=== PATIENT | male | born 1945 | race Caucasian/White ===

== ENCOUNTER → 2016-07-31 | Outpatient (CLI) | payer OTHER, BC ==
[~2016-07-31] MED LIST: ASCA500 PO; ASPI1TAB83 PO; CHOL100027 PO; DOCU100C31 PO; LORA-388 PO; LPT10 PO; MCRK20 PO; METO25TA56 PO; XRL20 PO; [UNRECOGNIZED DRUG - OTHER] PO
[2016-07-31 12:24] LABS: ALT/SGPT 42 U/L (12-78); BLOOD UREA NITROGEN 17 mg/dl (7-18); BUN/CREATININE RATIO 13.1 (10-20); CALCIUM 9.1 mg/dl (8.5-10.1); CARBON DIOXIDE 28 mmol/L (21-32); CHLORIDE 107 mmol/L (98-107); CHOLESTEROL 141 mg/dl (0-200); GLUCOSE 116 mg/dl (70-99); POTASSIUM 4.2 mmol/L (3.5-5.1); SODIUM 141 mmol/L (136-145); TRIGLYCERIDES 105 mg/dl (0-150); VERY LOW DENSITY LIPOPROT CALC 21 mg/dl
[2016-07-31 12:28] LABS: ALB/GLOB RATIO 1.1 (0.9-2); ALKALINE PHOSPHATASE 59 U/L (45-117); AST/SGOT 20 U/L (15-37); CHOLESTEROL/HDL RATIO 2.9; HDL CHOLESTEROL 48 mg/dl; LDL CHOLESTEROL CALCULATED 72 mg/dl
[2016-07-31 13:04] LABS: ESTIMATED AVERAGE GLUCOSE 143 mg/dl; HA1C FLAG Normal (Normal)
== END | disposition home or self-care (01) ==
LOC: C.LABPVFM 08:14
PROVIDERS: ATTEND Family Medicine
DX: E78.5 Hyperlipidemia, unspecified (principal); I10 Essential (primary) hypertension; R73.01 Impaired fasting glucose; E55.9 Vitamin D deficiency, unspecified; E87.6 Hypokalemia

== ENCOUNTER → 2016-09-30 | Outpatient (CLI) | payer OTHER, BC ==
[2016-09-30 14:39] LABS: CREATININE RANDOM URINE < 13.0 mg/dl
== END | disposition home or self-care (01) ==
LOC: C.LABPVFM 10:14
PROVIDERS: ATTEND Internal Medicine Endocrinology, Diabetes & Metabolism
DX: E11.9 Type 2 diabetes mellitus without complications (principal)

== ENCOUNTER → 2016-10-29 | Outpatient (CLI) | payer OTHER, BC ==
[2016-10-29 13:26] LABS: THYROID STIMULATING HORMONE 1.04 uIu/ml (0.300-4.500)
== END | disposition home or self-care (01) ==
LOC: C.LABPVFM 08:11
PROVIDERS: ATTEND Urology
DX: I10 Essential (primary) hypertension (principal); C61 Malignant neoplasm of prostate

== ENCOUNTER → 2017-01-30 | Outpatient (CLI) | payer OTHER, BC ==
[2017-01-30 13:15] LABS: ESTIMATED AVERAGE GLUCOSE 128 mg/dl; HA1C FLAG Normal (Normal)
[2017-01-30 13:53] LABS: ALT/SGPT 43 U/L (12-78); BLOOD UREA NITROGEN 21 mg/dl (7-18); BUN/CREATININE RATIO 17.7 (10-20); CALCIUM 8.9 mg/dl (8.5-10.1); CARBON DIOXIDE 27 mmol/L (21-32); CHLORIDE 110 mmol/L (98-107); CHOLESTEROL 134 mg/dl (0-200); GLUCOSE 95 mg/dl (70-99); SODIUM 143 mmol/L (136-145)
[2017-01-30 13:56] LABS: ALB/GLOB RATIO 1.2 (0.9-2); ALKALINE PHOSPHATASE 66 U/L (45-117); AST/SGOT 18 U/L (15-37); CHOLESTEROL/HDL RATIO 3.1; HDL CHOLESTEROL 43 mg/dl; LDL CHOLESTEROL CALCULATED 74 mg/dl; TRIGLYCERIDES 83 mg/dl (0-150); VERY LOW DENSITY LIPOPROT CALC 17 mg/dl
== END | disposition home or self-care (01) ==
LOC: C.LABPVFM 07:56
PROVIDERS: ATTEND Family Medicine
DX: E11.9 Type 2 diabetes mellitus without complications (principal)

== ENCOUNTER → 2017-04-28 | Outpatient (CLI) | payer OTHER, BC | END | disposition home or self-care (01) | LOC: C.LABPVFM 09:32 | PROVIDERS: ATTEND Urology | DX: R10.9 Unspecified abdominal pain (principal); C61 Malignant neoplasm of prostate; I48.91 Unspecified atrial fibrillation; E11.9 Type 2 diabetes mellitus without complications ==

== ENCOUNTER → 2017-06-16 | Day surgery (SDC) | payer OTHER, BC ==
[2017-06-05 08:56] VITALS: Ht 176.5 cm; Wt 88.6 kg
[~2017-06-16] VITALS: Ht 176.5 cm; Wt 88.6 kg
[~2017-06-16] MED LIST changes: -ASCA500 PO; +GLC/500 PO; -MCRK20 PO; +POTA20TA16 PO; +RIVA1TAB4 PO; +SODIUM CHLORIDE 0.9% 500ML 500 ML IV ONE; -XRL20 PO; -[UNRECOGNIZED DRUG - OTHER] PO
--- NOTE | 2017-06-16 09:39 | Endo History and Physical ---
History & Physical Date of Service: Jun 16, 2017. Chief Complaint: HISTORY OF POLYPS Referring Physician: DR SY History of Present Illness 72 yo CM who presents for colonoscopy secondary to history of colon polyps. Past Medical History Arthritis, Reflux, Cancer, High Cholesterol, Hypertension Past Surgical History Hx Cardiac Surgery: No Hx Internal Defibrillator: No Hx Pacemaker: No Hx Abdominal Surgery: Yes (HERNIA REPAIR) Hx of Implantable Prosthesis: No Hx Post-Op Nausea and Vomiting: No Hx Cancer Surgery: Yes (BCC REMOVALS, PROSTATECTOMY) Hx Thoracic Surgery: No Hx Orthopedic: No Hx Urinary Tract Surgery: No Family History None Social History Smoking Status: Never Smoker Hx Substance Use: No Hx Alcohol Use: No Allergies Coded Allergies: Penicillins (Verified Allergy, Intermediate, RASH/HIVES, 06/16/17) Succinylcholine (Verified Allergy, Unknown, "FAMILY MEMBER ALMOST ON IT DURING SURGERY", 06/16/17) Current Medications Reported Home Medications Medications Dose Route/Sig Max Daily Dose Days Date Category Xarelto (Rivaroxaban) 20 Mg Tab 20 Mg PO QPM 06/05/17 Reported Klor-Con (Potassium Chloride) 20 Meq Tabcr 20 Meq PO QAM 06/05/17 Reported Lopressor (Metoprolol Tartrate) 25 Mg Tab 25 Mg PO BID 06/05/17 Reported Glucophage (Metformin Hcl) 500 Mg Tab 500 Mg PO QPM 06/05/17 Reported Docusate Sodium 100 Mg Cap 1 Cap PO BID PRN 02/12/16 Reported Vitamin D 1000 Unit (Cholecalciferol) 1,000 Unit Cap 1,000 Inter.unit PO BID 02/12/16 Reported Lipitor (Atorvastatin Calcium) 10 Mg Tab 1 Tab PO QAM 02/12/16 Reported Alavert (Loratadine) 10 Mg Tab 1 Tab PO DAILY PRN 08/22/14 Reported Aspirin 81 Mg Tab 1 Tab PO NOON 08/22/14 Reported Vital Signs Weight (Kilograms): 88.64 Height (Feet): 5 Height (Inches): 9.5 Date Time Temp Pulse Resp B/P (MAP) Pulse Ox O2 Delivery O2 Flow Rate FiO2 06/16/17 08:56 37.2 72 20 143/83 (103) 97 Room Air Physical Exam General Appearance: WD/WN, no apparent distress Respiratory/Chest: Auscultation: breath sounds normal Cardiovascular: Heart Auscultation: RRR Abdomen: Bowel Sounds: normal Inspection & Palpation: soft, non-distended, no tenderness, guarding & rebound Assessment and Plan Assessment: 72 yo CM who presents for colonoscopy secondary to history of colon polyps. Plan: Proceed with colonoscopy.
--- NOTE | 2017-06-16 10:18 | Discharge Instructions ---
Endoscopy Patient Instructions Date / Procedure(s) Performed Jun 16, 2017. Colonoscopy Allergy Information Coded Allergies: Penicillins (Verified Allergy, Intermediate, RASH/HIVES, 06/16/17) Succinylcholine (Verified Allergy, Unknown, "FAMILY MEMBER ALMOST ON IT DURING SURGERY", 06/16/17) Discharge Date / Findings Jun 16, 2017. Diverticulosis Internal hemorrhoids Medication Instructions Stopped Medication(s): ASPIRIN 06/15/17, XARELTO 06/12/17, METFORMIN 06/14/17 OK to resume all medications today as prescribed Reported Home Medications Medications Dose Route/Sig Max Daily Dose Days Date Category Xarelto (Rivaroxaban) 20 Mg Tab 20 Mg PO QPM 06/05/17 Reported Klor-Con (Potassium Chloride) 20 Meq Tabcr 20 Meq PO QAM 06/05/17 Reported Lopressor (Metoprolol Tartrate) 25 Mg Tab 25 Mg PO BID 06/05/17 Reported Glucophage (Metformin Hcl) 500 Mg Tab 500 Mg PO QPM 06/05/17 Reported Docusate Sodium 100 Mg Cap 1 Cap PO BID PRN 02/12/16 Reported Vitamin D 1000 Unit (Cholecalciferol) 1,000 Unit Cap 1,000 Inter.unit PO BID 02/12/16 Reported Lipitor (Atorvastatin Calcium) 10 Mg Tab 1 Tab PO QAM 02/12/16 Reported Alavert (Loratadine) 10 Mg Tab 1 Tab PO DAILY PRN 08/22/14 Reported Aspirin 81 Mg Tab 1 Tab PO NOON 08/22/14 Reported Provider Instructions Activity Restrictions - No exercising or heavy lifting for 24 hours. - Do not drink alcohol the day of the procedure. - Do not drive a car or operate machinery until the day after the procedure. - Do not make any important decisions or sign important papers in 24 hours after the procedure. Following Day: - Return to full activity which may include returning to work/school. Diet Start your diet with liquids and light foods (jello, soup, juice, toast). Then eat your usual diet if not nauseated. Treatment For Common After Affects For mild abdominal pain, bloating, or excessive gas: - Rest - Eat lightly - Lie on right side Follow-Up Information Follow-up with DR SY as scheduled Anesthesia Information What You Should Know You have had a procedure that required some medicine to reduce anxiety and discomfort. This treatment is called moderate sedation. After receiving the treatment, you may be sleepy, but you will be able to breathe on your own. The effects of the treatment may last for several hours. Follow these instructions along with Activity/Diet recommendations noted above: * Do NOT do anything where dizziness or clumsiness would be dangerous. * Rest quietly at home today, then you can be up and about tomorrow. * Have a responsible person stay with you the rest of today. * You may have had an I.V. today. If so, you may take the dressing off later today. Recommendations Call your doctor if: * Trouble breathing * Continuous vomiting for more than 24 hours * Temperature above 101 degrees * Severe abdominal pain or bloating * Pain not relieved by pain medicine ordered * There is increased drainage or redness from any incision * A large amount of rectal bleeding greater than 2-3 tablespoons. (If you had a polyp/s removed or have hemorrhoids, a small amount of blood - from the rectum is to be expected.) * You have any unanswered questions or concerns. IN THE EVENT OF A SERIOUS EMERGENCY, GO TO THE NEAREST EMERGENCY ROOM Your discharge instructions were prepared by provider Franc Ascencio. Patient Instructions Signature Page Castillo Quijano Patient (or Guardian) Signature/Date: I have read and understand the instructions given to me by my caregivers. Caregiver/RN/Doctor Signature/Date: The above-named patient and/or guardian has received patient instructions on this date. + Original Patient Signature Page (only) stays with chart. Please make copy for patient.
--- NOTE | 2017-06-16 10:18 | GI REPORT ---
Procedure Date: 06/16/2017 9:15 AM Procedure: Colonoscopy Indications: High risk colon cancer surveillance: Personal history of colonic polyps Medicines: Monitored Anesthesia Care Complications: No immediate complications. Estimated Blood Loss: Estimated blood loss: none. Procedure: Pre-Anesthesia Assessment: - Prior to the procedure, a History and Physical was performed, and patient medications and allergies were reviewed. The patient's tolerance of previous anesthesia was also reviewed. The risks and benefits of the procedure and the sedation options and risks were discussed with the patient. All questions were answered, and informed consent was obtained. Prior Anticoagulants: The patient last took aspirin 1 day and Xarelto (rivaroxaban) 5 days prior to the procedure. ASA Grade Assessment: III - A patient with severe systemic disease. After reviewing the risks and benefits, the patient was deemed in satisfactory condition to undergo the procedure. After I obtained informed consent, the scope was passed under direct vision. Throughout the procedure, the patient's blood pressure, pulse, and oxygen saturations were monitored continuously. The Scope was introduced through the anus and advanced to the terminal ileum. The colonoscopy was performed without difficulty. The patient tolerated the procedure well. The quality of the bowel preparation was good. The terminal ileum, ileocecal valve, appendiceal orifice, and rectum were photographed. Findings: The perianal and digital rectal examinations were normal. A few small-mouthed diverticula were found in the sigmoid colon. Non-bleeding internal hemorrhoids were found during retroflexion. The hemorrhoids were small. Impression: - Diverticulosis in the sigmoid colon. - Non-bleeding internal hemorrhoids. - No specimens collected. Recommendation: - Resume previous diet. - Continue present medications. - No repeat colonoscopy due to age and the absence of advanced adenomas. - Return to primary care physician as previously scheduled. Franc Ascencio DO 06/16/2017 10:17:39 AM This report has been signed electronically. Note Initiated On: 06/16/2017 9:15 AM I attest to the content of the Intraoperative Record and orders documented therein, exceptions below
--- NOTE | 2017-06-16 10:26 | Anesthesiology Progress Note ---
Anesthesia Post Op Note Date & Time Jun 16, 2017 at 10:26 Vital Signs Pain Intensity: 0 Vital Signs Past 12 Hours Date Time Temp Pulse Resp B/P (MAP) Pulse Ox O2 Delivery O2 Flow Rate FiO2 06/16/17 08:56 37.2 72 20 143/83 (103) 97 Room Air Notes Mental Status: alert / awake / arousable, participated in evaluation Pt Amnestic to Procedure: Yes Nausea / Vomiting: adequately controlled Pain: adequately controlled Airway Patency, RR, SpO2: stable & adequate BP & HR: stable & adequate Hydration State: stable & adequate Anesthetic Complications: no major complications apparent
[2017-06-16 10:40] VITALS: BP 133/86; PULSE 61; O2SAT 97
== END | disposition home or self-care (01) ==
LOC: C.GI 08:33
PROVIDERS: ATTEND Internal Medicine
DX: Z12.11 Encounter for screening for malignant neoplasm of colon (principal); Z86.010 Personal history of colon polyps; M19.90 Unspecified osteoarthritis, unspecified site; K21.9 Gastro-esophageal reflux disease without esophagitis; E78.00 Pure hypercholesterolemia, unspecified; I10 Essential (primary) hypertension; E11.9 Type 2 diabetes mellitus without complications; Z90.79 Acquired absence of other genital organ(s); Z85.820 Personal history of malignant melanoma of skin; Z88.0 Allergy status to penicillin; Z88.8 Allergy status to other drugs, medicaments and biological substances; Z79.82 Long term (current) use of aspirin; Z85.46 Personal history of malignant neoplasm of prostate; K57.30 Diverticulosis of large intestine without perforation or abscess without bleeding; K64.8 Other hemorrhoids

== ENCOUNTER → 2017-07-27 | Outpatient (CLI) | payer OTHER, BC ==
[~2017-07-27] MED LIST changes: -SODIUM CHLORIDE 0.9% 500ML 500 ML IV ONE
[2017-07-27 13:24] LABS: HEMOGLOBIN A1C 6.3 % (4.5-5.6)
[2017-07-27 14:03] LABS: ALBUMIN 3.6 gm/dl (3.4-5.0); ALT/SGPT 37 U/L (12-78); BLOOD UREA NITROGEN 16 mg/dl (7-18); CALCIUM 8.9 mg/dl (8.5-10.1); CARBON DIOXIDE 27 mmol/L (21-32); CHOLESTEROL 129 mg/dl (0-200); GLUCOSE 104 mg/dl (70-99); POTASSIUM 3.7 mmol/L (3.5-5.1); SODIUM 138 mmol/L (136-145)
[2017-07-27 14:06] LABS: ALKALINE PHOSPHATASE 65 U/L (45-117); AST/SGOT 19 U/L (15-37); LDL CHOLESTEROL CALCULATED 68 mg/dl; TOTAL PROTEIN 6.9 gm/dl (6.4-8.2)
== END | disposition home or self-care (01) ==
LOC: C.LABPVFM 08:01
PROVIDERS: ATTEND Family Medicine
DX: E78.5 Hyperlipidemia, unspecified (principal); I10 Essential (primary) hypertension; E87.6 Hypokalemia; I48.91 Unspecified atrial fibrillation